=== PATIENT | female | born 1990 | race Two or more races ===

== ENCOUNTER 2017-09-05 08:00 | Inpatient (IN) | payer MEDICAID ==
[2017-09-05] VITALS (12 sets, daily range): BP systolic 112–129; BP diastolic 67–85
[~2017-09-05] VITALS: Ht 165.1 cm; Wt 96.6 kg
[2017-09-05] MEDS ORDERED: PREN-96 PO (08:56)
[2017-09-05 09:34] LABS: Basophils # (auto) 0 uL; Eosinophils # (auto) 0.1 uL; Red Cell Distribution Width 17.8 % (11.8-14.3)
[2017-09-05 09:36] LABS: Basophils % (auto) 0.3 % (0.0-2.0); Eosinophils % (auto) 0.8 % (0.0-7.0); Hematocrit 37.7 % (36.0-46.0); Lymphocytes % (auto) 26.3 % (10.0-50.0); Mean Corpuscular Hemoglobin 25.1 pg (28.0-32.0); Mean Corpuscular Hgb Conc. 31.7 g/dL (32.0-36.0); Monocytes # (auto) 0.6 uL; Monocytes % (auto) 8.3 % (0.0-12.0); Neutrophils # (auto) 4.8 uL; Neutrophils % (auto) 64.3 % (37.0-80.0); Nucleated Red Blood Cells % 0.1 %; Platelet Count (auto) 238 10^3/uL (140-450); Red Blood Cells 4.77 10^6/uL (4.0-5.20); White Blood Cell 7.5 10^3/uL (4.4-10.8)
[2017-09-05 09:43] LABS: Urine Bacteria NONE SEEN /hpf (None Seen); Urine Blood Negative /uL (Negative); Urine Mucus FEW (None Seen); Urine Specific Gravity 1.025 (1.001-1.035); Urine WBC 2 /hpf (0 - 5)
[2017-09-05 09:46] LABS: INR 0.89 (0.9-1.15); Partial Thromboplastin Time 31.8 sec (22.64-33.71); Prothrombin Time 9.7 sec (9.37-12.3)
[2017-09-05 10:08] LABS: Albumin 2.5 g/dL (3.4-5.0); BUN/Creatinine Ratio 16.7; Bilirubin, Total 0.1 mg/dL (0.2-1.0); Calcium 8.3 mg/dL (8.5-10.1); Potassium 3.8 mmol/L (3.5-5.1); Total Protein 6.5 g/dL (6.4-8.2)
[2017-09-05] MEDS ORDERED: TETRACAINE 1% INJ 2 ML VIAL IJ ONE (11:38)
[2017-09-05] MEDS ORDERED: MORPHINE SULF(PF) 0.5MG/ML 10ML VIAL ONE (12:01)
[2017-09-05] MEDS ORDERED: MIDAZOLAM HCL 1MG/1ML-2 ML VIAL ONE (12:01)
[2017-09-05] MEDS ORDERED: fentaNYL CITRATE 100 MCG/2 ML VL ONE (12:01)
[2017-09-05] MEDS ORDERED: OXYTOCIN 10 UNIT/ML 10ML VIAL ONE (12:40)
[2017-09-05] MEDS ORDERED: ceFAZolin 1GM VL ONE (12:40)
[2017-09-05] MEDS ORDERED: PHENYLEPHRINE HCL 10 MG/ML VL ONE (12:46)
[2017-09-05] MEDS ORDERED: LACT. RINGERS/OXYTOCIN 20UNITS 1,000 ML IV SCH (12:58)
[2017-09-05] MEDS ORDERED: KETOROLAC TROMETH 30 MG/ML 1ML VIAL IV PRN (13:00)
[2017-09-05] MEDS ORDERED: MORPHINE SULFATE 4 MG/ML SYR/VIAL IV PRN (13:00)
[2017-09-05] MEDS ORDERED: ONDANSETRON HCL 4 MG/2 ML VIAL IV PRN ×2 (13:00→13:30)
[2017-09-05] MEDS ORDERED: NALOXONE HCL 0.4 MG/ML VIAL IV PRN (13:30)
[2017-09-05] MEDS ORDERED: diphenhdrAMINE HCL 50 MG/1 ML VL IV PRN (13:30)
[2017-09-05] MEDS ORDERED: NALBUPHINE HCL 10 MG/1ml INJECTION SUBCUT ONE (13:30)
[2017-09-05] MEDS ORDERED: DEXAMETHASONE SOD PHOS 10MG/1ML VIAL INJ IV PRN (13:30)
[2017-09-05] MEDS: KETOROLAC TROMETH 30 MG/ML 1ML VIAL IV PRN (19:05)
[2017-09-05 19:48] LABS: Basophils # (auto) 0 uL; Eosinophils # (auto) 0 uL; Lymphocytes # (auto) 1.5 uL; Monocytes # (auto) 0.8 uL; Monocytes % (auto) 7.3 % (0.0-12.0); White Blood Cell 10.5 10^3/uL (4.4-10.8)
[2017-09-05 19:50] LABS: Basophils % (auto) 0.1 % (0.0-2.0); Eosinophils % (auto) 0.2 % (0.0-7.0); Hematocrit 35.1 % (36.0-46.0); Hemoglobin 11.4 g/dL (12.2-16.2); Mean Corpuscular Hemoglobin 25.7 pg (28.0-32.0); Mean Corpuscular Hgb Conc. 32.4 g/dL (32.0-36.0); Mean Corpuscular Volume 79.3 fL (80.0-100.0); Neutrophils # (auto) 8.3 uL; Neutrophils % (auto) 78.4 % (37.0-80.0); Nucleated Red Blood Cells % 0.1 %; Platelet Count (auto) 225 10^3/uL (140-450); Red Blood Cells 4.43 10^6/uL (4.0-5.20); Red Cell Distribution Width 17.9 % (11.8-14.3)
[2017-09-05] MEDS: ceFAZolin 1GM/100ML 50 ML IV SCH (21:00)
[2017-09-05] MEDS: HYDROmorphone HCL 2 MG/ML VL IV PRN (22:15)
[2017-09-06] VITALS (11 sets, daily range): BP systolic 113–143; BP diastolic 68–97
[2017-09-06] MEDS: LACTATED RINGER'S 1,000 ML IV SCH ×3 (00:30→16:43)
[2017-09-06] MEDS: KETOROLAC TROMETH 30 MG/ML 1ML VIAL IV PRN ×2 (00:50→07:25)
[2017-09-06] MEDS: HYDROmorphone HCL 2 MG/ML VL IV PRN (03:06)
[2017-09-06] MEDS: ceFAZolin 1GM/100ML 50 ML IV SCH ×2 (04:58→13:08)
[2017-09-06 07:36] LABS: Basophils # (auto) 0 uL; Basophils % (auto) 0.5 % (0.0-2.0); Eosinophils # (auto) 0 uL; Eosinophils % (auto) 0.4 % (0.0-7.0); Hematocrit 33.6 % (36.0-46.0); Hemoglobin 10.8 g/dL (12.2-16.2); Lymphocytes # (auto) 1.3 uL; Lymphocytes % (auto) 15.4 % (10.0-50.0); Mean Corpuscular Hemoglobin 25.6 pg (28.0-32.0); Mean Corpuscular Hgb Conc. 32.1 g/dL (32.0-36.0); Mean Corpuscular Volume 79.6 fL (80.0-100.0); Monocytes # (auto) 0.7 uL; Monocytes % (auto) 8.4 % (0.0-12.0); Neutrophils # (auto) 6.5 uL; Neutrophils % (auto) 75.3 % (37.0-80.0); Nucleated Red Blood Cells % 0.1 %; Platelet Count (auto) 218 10^3/uL (140-450); Red Blood Cells 4.22 10^6/uL (4.0-5.20); Red Cell Distribution Width 17.8 % (11.8-14.3); White Blood Cell 8.6 10^3/uL (4.4-10.8)
[2017-09-06] MEDS ORDERED: BISACODYL 10 MG RECT SUPP PR PRN (12:15)
[2017-09-06] MEDS ORDERED: HYDROcodone-ACET 5/325MG TAB PO PRN (12:15)
[2017-09-06] MEDS ORDERED: DOCUSATE CALCIUM 240 MG CAP PO ONE (12:30)
[2017-09-06] MEDS ORDERED: DOCUSATE SOD 100 MG CAP PO ONE (12:30)
[2017-09-06] MEDS ORDERED: FERROUS SULFATE 325 MG TAB PO ONE (12:30)
[2017-09-06] MEDS: HYDROcodone-ACET 5/325MG TAB PO PRN ×2 (13:00→19:54)
[2017-09-06] MEDS: IBUPROFEN 800 MG TAB PO PRN ×2 (14:15→22:24)
[2017-09-06] MEDS: SIMETHICONE 80 MG CHEWABLE TABLET PO SCH ×2 (18:11→22:27)
[2017-09-06] MEDS ORDERED: ceFAZolin 1GM/100ML 100 ML IV ONE (20:34)
[2017-09-06] MEDS: DOCUSATE SOD 100 MG CAP PO SCH (22:23)
[2017-09-06] MEDS: FERROUS SULFATE 325 MG TAB PO SCH (22:23)
[2017-09-07] MEDS: LACTATED RINGER'S 1,000 ML IV SCH ×3 (00:24→16:43)
[2017-09-07 03:00] VITALS: BP 141/92
[2017-09-07] MEDS: HYDROcodone-ACET 5/325MG TAB PO PRN ×5 (03:13→23:42)
[2017-09-07] MEDS: SIMETHICONE 80 MG CHEWABLE TABLET PO SCH ×4 (05:45→22:23)
[2017-09-07] MEDS: IBUPROFEN 800 MG TAB PO PRN ×3 (05:47→22:23)
[2017-09-07 06:36] VITALS: BP 135/90
[2017-09-07] MEDS ORDERED: DOCUSATE CALCIUM 240 MG CAP PO SCH (10:00)
[2017-09-07] MEDS: DOCUSATE SOD 100 MG CAP PO SCH ×2 (10:00→22:00)
[2017-09-07] MEDS: FERROUS SULFATE 325 MG TAB PO SCH ×2 (10:27→22:23)
[2017-09-07 11:00] VITALS: BP 140/88
[2017-09-07 15:00] VITALS: BP 148/95
[2017-09-07 19:20] VITALS: BP 138/86
[2017-09-07 23:00] VITALS: BP 139/88
[2017-09-08] MEDS: LACTATED RINGER'S 1,000 ML IV SCH (00:43)
[2017-09-08 03:00] VITALS: BP 158/95
[2017-09-08 04:00] VITALS: BP 141/85
[2017-09-08] MEDS: HYDROcodone-ACET 5/325MG TAB PO PRN (04:43)
[2017-09-08] MEDS: SIMETHICONE 80 MG CHEWABLE TABLET PO SCH (05:47)
[2017-09-08] MEDS: IBUPROFEN 800 MG TAB PO PRN (05:47)
[2017-09-08 07:17] VITALS: BP 140/88
[2017-09-08 10:18] VITALS: BP 138/90
== END 2017-09-08 10:40 | disposition home or self-care (01) | DRG 540 ==
LOC: LDRP 08:00
PROVIDERS: ADMIT Obstetrics & Gynecology; ATTEND Obstetrics & Gynecology
PROC: 10D00Z1 Extraction of Products of Conception, Low, Open Approach (ICD-10-PCS; principal; 2017-09-05 12:15)
DX: O32.1XX0 Maternal care for breech presentation, not applicable or unspecified (principal); J45.909 Unspecified asthma, uncomplicated; O99.52 Diseases of the respiratory system complicating childbirth; Z37.0 Single live birth; Z3A.39 39 weeks gestation of pregnancy
CPT/HCPCS: 36415; 51702; 59025; 80053; 81001; 81002; 85025; 85610; 85730; 86850; 86900; 86901; 94760; 96365; 96366; 96374; 96375; J0690; J1885; J2250; J2590